=== PATIENT | female | born 1990 | race Caucasian/White ===

== ENCOUNTER 2020-08-14 11:43 | Emergency (ER) | payer SELFPAY ==
[~2020-08-14] VITALS: Ht 165.1 cm; Wt 81.6 kg
[2020-08-14 11:50] VITALS: BP 140/61
--- NOTE | 2020-08-14 11:50 | NUR ---
Ambulated to bed 11
--- NOTE | 2020-08-14 12:00 | NUR ---
29/F presents to ED with c/o right lower abdominal pain. Patient states she was at work this morning when she suddenly began experiencing sharp 7/10 right lower abdomen pain. Patient states the more she walks or moves the pain worsens, states she feels relief while at rest and not moving. Denies taking anything for pain. Denies dysuria, hematuria, nausea, vomiting and diarrhea. Patient alert and oriented x4, answering questions appropriately, placed in gown.
[2020-08-14] MEDS ORDERED: KETOROLAC 15 MG/ML VIAL IVP ONE (12:20)
[2020-08-14 12:35] LABS: BASOPHILS % (AUTO) 0.3 % (0.0-2.0); EOSINOPHILS # (AUTO) 0.1 K/uL (0-0.4); EOSINOPHILS % (AUTO) 1.1 % (0.0-4.0); HEMATOCRIT 39.7 % (36-48); HEMOGLOBIN 13.6 g/dL (12.0-16.0); LYMPHOCYTES # (AUTO) 1.5 K/uL (2.5-16.5); MEAN CORPUSCULAR HEMOGLOBIN 32 pg (27-31); MEAN CORPUSCULAR HGB CONC 34 g/dL (33-37); MEAN CORPUSCULAR VOLUME 94.1 fL (80-94); MONOCYTES # (AUTO) 0.5 K/uL (0.8-1.0); MONOCYTES % (AUTO) 5.8 % (1.7-9.3); NEUTROPHILS # (AUTO) 7.1 K/uL (1.8-7.7); NEUTROPHILS % (AUTO) 76.8 % (42.2-75.2); PLATELET COUNT (AUTO) 224 K/uL (140-450); RED BLOOD CELL COUNT(AUTO) 4.22 MIL/uL (4.20-5.40); RED CELL DISTRIBUTION WIDTH 12.8 % (11.6-13.7); WHITE BLOOD COUNT (AUTO) 9.3 K/uL (4.8-10.8)
[2020-08-14 12:53] LABS: ALBUMIN 3.9 g/dL (3.4-5.0); ANION GAP 14.9 (8-16); CARBON DIOXIDE 26.2 mmol/L (21-32); CREATININE 0.9 mg/dL (0.6-1.3); POTASSIUM 4.1 mmol/L (3.5-5.1); TOTAL BILIRUBIN 0.4 mg/dL (0.0-1.0)
--- NOTE | 2020-08-14 13:10 | NUR ---
Taken to CT via wheel chair
--- NOTE | 2020-08-14 13:25 | NUR ---
Patient returned from CT
[2020-08-14] MEDS ORDERED: IBUP-2213 PO (13:59)
[2020-08-14 14:11] VITALS: BP 140/61
== END 2020-08-14 14:11 | disposition home or self-care (01) ==
LOC: MED 11:43
DX: R10.31 Right lower quadrant pain (principal); Z79.899 Other long term (current) drug therapy
CPT/HCPCS: 36415; 74177; 80053; 81002; 81025; 85025; 96374; 99285; J1885; Q9967